=== PATIENT | female | born 1955 | race Caucasian/White ===

== ENCOUNTER 2022-08-30 09:17 | Day surgery (SDC) | payer BC, MEDICARE ==
[~2022-08-30 09:17] MED LIST: Lactated Ringers 1,000 ML IV SCH; Sodium Chloride 0.9% 10 ML Syringe FLUSH PRN; Sodium Chloride 0.9% 2.5 ML Syringe FLUSH PRN; Sodium Chloride 0.9% 20 ML SDV IV PRN
[2022-08-30] MEDS ORDERED: Propofol 200 MG/20 ML SDV ONE (10:07)
[2022-08-30] MEDS ORDERED: fentaNYL 100 MCG/2 ML SDV ONE (10:07)
[2022-08-30] MEDS ORDERED: Lidocaine 2% 5 ML SDV ONE (10:44)
[2022-08-30 12:47] VITALS: BP 112/56; PULSE 64
== END 2022-08-30 13:00 | disposition home or self-care (01) ==
LOC: MW.SDS 09:17
PROVIDERS: ATTEND Surgery
DX: Z12.11 Encounter for screening for malignant neoplasm of colon (principal); D12.3 Benign neoplasm of transverse colon; D12.2 Benign neoplasm of ascending colon; D12.5 Benign neoplasm of sigmoid colon; I10 Essential (primary) hypertension; M85.80 Other specified disorders of bone density and structure, unspecified site; Z86.010 Personal history of colon polyps; Z79.899 Other long term (current) drug therapy; Z87.891 Personal history of nicotine dependence
CPT/HCPCS: 45380; J2704; J3010; J7120; 00811; J3490